=== PATIENT | female | born 1995 | race Caucasian/White ===

== ENCOUNTER 2016-06-04 16:47 | Emergency (ER) | payer OTHER ==
[2016-06-04 17:38] VITALS: BP 122/70
--- NOTE | 2016-06-04 18:17 | UC ---
Ear Complaint HPI - HPI Summary HPI Summary: sever ear pain for 4 days, URI symptoms. denies hearing loss, - History of Current Complaint Chief Complaint: UCEar Stated Complaint: EAR ACHE Time Seen by Provider: 06/04/16 18:11 Hx Obtained From: Patient Hx Last Menstrual Period: 05/31/16 presently ?: No Onset/Duration: Sudden Onset, Lasting Days Severity Initially: Moderate Severity Currently: Severe Pain Intensity: 8 Pain Scale Used: 0-10 Numeric Associated Signs/Symptoms: Positive: Discharge, URI Symptoms - Allergies/Home Medications Allergies/Adverse Reactions: Allergies Allergy/AdvReac Type Severity Reaction Status Date / Time coconut Allergy Severe Itching Uncoded 06/04/16 17:39 bee stings Allergy Intermediate Hives Uncoded 06/04/16 17:39 Home Medications: Home Medications Control Patch 06/04/16 [History] PMH/Surg Hx/FS Hx/Imm Hx Previously Healthy: Yes Endocrine History Of: Denies: Diabetes, Thyroid Disease, Hyperthyroidism, Hypothyroidism Cardiovascular History Of: Denies: Cardiac Disorders, Hypertension, Pacemaker/ICD Respiratory History Of: Reports: Asthma Denies: COPD GI/ History Of: Denies: Ulcer, Renal Disease Neurological History Of: Denies: TIA, Seizures Psychological History Of: Denies: Anxiety, Depression - Surgical History Surgical History: None Surgery Procedure, Year, and Place: [facility] 2014 miscarriage - Family History Known Family History: Positive: Diabetes, Other - mom- PE's; dad - stomach cancer - Social History Alcohol Use: Weekly Substance Use Type: None Smoking Status (MU): Former Smoker Length of Time of Smoking/Using Tobacco: one year Have You Smoked in the Last Year: No When Did the Patient Quit Smoking/Using Tobacco: 2011 Household Exposure Type: Cigarettes - Immunization History Most Recent Influenza Vaccination: 02/13/16 Most Recent Tetanus Shot: 01/18/16 Most Recent Pneumonia Vaccination: N/A Review of Systems Constitutional: Fever, Fatigue Skin: Negative Eyes: Negative ENT: Sore Throat, Ear Ache, Nasal Discharge Respiratory: Negative Cardiovascular: Negative Gastrointestinal: Negative Genitourinary: Negative Motor: Negative Neurovascular: Negative Musculoskeletal: Negative Neurological: Negative Psychological: Negative All Other Systems Reviewed And Are Negative: Yes Physical Exam Triage Information Reviewed: Yes Appearance: Well-Nourished, Ill-Appearing, Pain Distress Vital Signs: Initial Vital Signs Temp 98.6 F 06/04/16 17:30 Pulse 67 06/04/16 17:30 Resp 16 06/04/16 17:30 BP 122/70 06/04/16 17:30 Pulse Ox 100 06/04/16 17:30 Vital Signs Reviewed: Yes Eye Exam: Normal ENT: Positive: Pharyngeal erythema, Nasal drainage - right external canal is very swollen, otitis media noted. left ear normal Dental Exam: Normal Neck exam: Normal Neck: Positive: Supple, Nontender, No Lymphadenopathy Respiratory Exam: Normal Respiratory: Positive: Chest non-tender, Lungs clear, Normal breath sounds Cardiovascular Exam: Normal Cardiovascular: Positive: RRR, No Murmur, Pulses Normal Abdominal Exam: Normal Abdomen Description: Positive: Nontender, No Organomegaly, Soft Bowel Sounds: Positive: Present Musculoskeletal Exam: Normal Musculoskeletal: Positive: Strength Intact, ROM Intact, No Edema Neurological Exam: Normal Neurological: Positive: Alert, Muscle Tone Normal Psychological Exam: Normal Skin Exam: Normal Ear Complaint Course/Dx - Course Course Of Treatment: hx obtained, exam performed, treated for otitis media right ear - Differential Dx/Diagnosis Differential Diagnosis/HQI/PQRI: Cellulitis, Cerumen Impaction, Foreign Body, Otitis Externa, Otitis Media, Perforated TM Provider Diagnoses: Otitis media, right Discharge - Discharge Plan Condition: Stable Disposition: HOME Prescriptions: Amoxicillin/Clavulanate TAB* [Augmentin TAB 875*] 875 mg PO BID #20 tab Ibuprofen TAB* [Motrin TAB* 600 MG] 600 mg PO Q6H PRN #30 tab PRN Reason: Pain Patient Education Materials: Otitis Media (ED) Additional Instructions: take the medication as prescribed, ibuprofen for pain and fever, follow upw ith any hearing loss or worsening symtpoms.
== END 2016-06-04 18:20 | disposition home or self-care (01) ==
LOC: UCEAST 16:47
DX: H66.91 Otitis media, unspecified, right ear (principal); Z87.891 Personal history of nicotine dependence
CPT/HCPCS: 99212; G0463

== ENCOUNTER 2016-09-02 10:42 | Emergency (ER) | payer SELFPAY ==
[2016-09-02 10:51] VITALS: BP 117/67
--- NOTE | 2016-09-02 11:34 | UC ---
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 constant aching pain that radiates into her neck moving her arm amd turning her head to the left makes it worse looking down also increases the pain lying on her back lessens the pain took some ibuprofen 600 mg PO with some relief yesterday - History of Current Complaint Chief Complaint: UCUpperExtremity Stated Complaint: BACK AND SHOULDER INJURY Time Seen by Provider: 09/02/16 11:25 Hx Obtained From: Patient Hx Last Menstrual Period: 08/22/16 - Allergies/Home Medications Allergies/Adverse Reactions: Allergies Allergy/AdvReac Type Severity Reaction Status Date / Time coconut Allergy Severe Itching Uncoded 09/02/16 10:51 bee stings Allergy Intermediate Hives Uncoded 09/02/16 10:51 PMH/Surg Hx/FS Hx/Imm Hx Previously Healthy: Yes Endocrine History Of: Denies: Diabetes, Thyroid Disease, Hyperthyroidism, Hypothyroidism Cardiovascular History Of: Denies: Cardiac Disorders, Hypertension, Pacemaker/ICD Respiratory History Of: Reports: Asthma Denies: COPD GI/ History Of: Denies: Ulcer, Renal Disease Neurological History Of: Denies: TIA, Seizures Psychological History Of: Denies: Anxiety, Depression - Surgical History Surgical History: None Surgery Procedure, Year, and Place: Dn 2014 miscarriage - Family History Known Family History: Positive: Diabetes, Other - mom- PE's; dad - stomach cancer Negative: Cardiac Disease, Hypertension - Social History Occupation: Employed Full-time Lives: With Family Alcohol Use: Occasionally Substance Use Type: None Smoking Status (MU): Former Smoker Length of Time of Smoking/Using Tobacco: one year Have You Smoked in the Last Year: No When Did the Patient Quit Smoking/Using Tobacco: 2011 Household Exposure Type: Cigarettes - Immunization History Most Recent Influenza Vaccination: 02/13/16 Most Recent Tetanus Shot: 01/18/16 Most Recent Pneumonia Vaccination: N/A Review of Systems Constitutional: Negative Skin: Negative Eyes: Negative ENT: Negative Respiratory: Negative Cardiovascular: Negative Gastrointestinal: Negative Genitourinary: Negative Motor: Negative Neurovascular: Negative Musculoskeletal: Other: - left shoulder pain Neurological: Negative Psychological: Negative All Other Systems Reviewed And Are Negative: Yes Physical Exam Triage Information Reviewed: Yes Appearance: No Pain Distress, Well-Nourished Vital Signs: Initial Vital Signs Temp 98.1 F 09/02/16 10:48 Pulse 71 09/02/16 10:48 Resp 16 09/02/16 10:48 BP 117/67 09/02/16 10:48 Pulse Ox 99 09/02/16 10:48 Vital Signs Reviewed: Yes Eyes: Positive: Conjunctiva Clear ENT: Positive: Pharynx normal, TMs normal Neck: Positive: No Lymphadenopathy, Other: - tenderness throughout trapezius full ROM of neck Respiratory: Positive: Lungs clear, Normal breath sounds, No respiratory distress, No accessory muscle use Cardiovascular: Positive: RRR, No Murmur, Pulses Normal Abdomen Description: Positive: Nontender, Soft Bowel Sounds: Positive: Present Musculoskeletal: Positive: Other: - No bony deformities,- tenderness in rotator cuff and acromioclavicular joint. Full ROM and strength in shoulder upon adduction, abduction, internal and external rotation. Neurological: Positive: Alert Psychological Exam: Normal Skin Exam: Normal Back Pain Course/Dx - Differential Dx/Diagnosis Differential Diagnosis/HQI/PQRI: Strain, Sprain Provider Diagnoses: left shouder pain Discharge - Discharge Plan Condition: Stable Disposition: HOME Prescriptions: Cyclobenzaprine TAB* [Flexeril 10 MG TAB*] 10 mg PO BEDTIME #7 tab Patient Education Materials: Shoulder Pain (ED), Shoulder Sprain (ED) Referrals: Cheyenne Recinos MD [Primary Care Provider] - Additional Instructions: Start flexeril as directed. Do not drink alcohol or drive while taking flexeril. Please call physical therapy for further evaluation and treatment. Take ibuprofen for fever or pain. Increase fluids and rest. Please review your discharge instructions. If your symptoms do not improve please call your primary care provider or return to urgent care.
== END 2016-09-02 11:50 | disposition home or self-care (01) ==
LOC: UCEAST 10:42
DX: M25.512 Pain in left shoulder (principal); J45.909 Unspecified asthma, uncomplicated; Z87.891 Personal history of nicotine dependence
CPT/HCPCS: 99212; G0463

== ENCOUNTER 2017-03-14 21:57 | Emergency (ER) | payer MEDICAID, OTHER ==
[2017-03-14 22:02] VITALS: BP 117/75
--- NOTE | 2017-03-15 01:51 | ED ---
Back Pain - HPI Summary HPI Summary: Patient presents to the ED with CC of left rib pain after coughing. Cough x 3 weeks which has been improving. Since coughing hard a few days ago she has noticed a pain in her right lower left ribs which is worse with movement, coughing and better with rest. Denies fevers, sweats, or chills. She has not taken anything for the pain. She denies other symptoms or complaints at this time. Denies throat pain, ABDI or abdominal pain. Denies SOB or chest pain. - History of Current Complaint Chief Complaint: EDChestWallPain Stated Complaint: LT SIDE RIB PAIN Time Seen by Provider: 03/14/17 22:14 Hx Obtained From: Patient Hx Last Menstrual Period: 08/22/16 Onset/Duration: Sudden Onset Onset/Duration: Started Days Ago Timing: Constant Back Pain Location: Is Discrete @ - left rib pain Severity Initially: Moderate Severity Currently: Moderate Pain Intensity: 4 Pain Scale Used: 0-10 Numeric Character: Aching Aggravating Symptom(s): Movement Alleviating Symptom(s): Rest Associated Signs And Symptoms: Positive: Negative - Risk Factors AAA Risk Factors: Negative TAD Risk Factors: Negative Cauda Equina Risk Factors: Negative Epidural Abscess Risk Factors: Negative - Allergies/Home Medications Allergies/Adverse Reactions: Allergies Allergy/AdvReac Type Severity Reaction Status Date / Time coconut Allergy Severe Itching Uncoded 03/14/17 22:02 bee stings Allergy Intermediate Hives Uncoded 03/14/17 22:02 PMH/Surg Hx/FS Hx/Imm Hx Previously Healthy: Yes Endocrine/Hematology History: Denies: Hx Diabetes, Hx Thyroid Disease Cardiovascular History: Denies: Hx Hypercholesterolemia, Hx Hypertension, Hx Pacemaker/ICD, Hx Peripheral Vascular Disease Respiratory History: Reports: Hx Asthma, Other Respiratory Problems/Disorders - ASTHMA Denies: Hx Chronic Obstructive Pulmonary Disease (COPD) GI History: Denies: Hx Ulcer History: Denies: Hx Renal Disease Musculoskeletal History: Reports: Hx Scoliosis Denies: Hx Arthritis, Hx Osteoporosis Sensory History: Denies: Hx Cataracts, Hx Contacts or Glasses, Hx Glaucoma, Hx Hearing Aid Opthamlomology History: Denies: Hx Cataracts, Hx Contacts or Glasses, Hx Glaucoma Neurological History: Denies: Hx Headaches, Hx Seizures, Hx Transient Ischemic Attacks (TIA) Psychiatric History: Denies: Hx Anxiety, Hx Depression, Hx Panic Disorder - Cancer History Cancer Type, Location and Year: inhaler PRN. control patch - Surgical History Surgery Procedure, Year, and Place: [facility] 2014 miscarriage - Immunization History Date of Tetanus Vaccine: Unk Date of Influenza Vaccine: None Hx Pertussis Vaccination: No Immunizations Up to Date: Yes Infectious Disease History: No Infectious Disease History: Reports: Hx Tuberculosis - Postive Test in past Denies: Hx Clostridium Difficile, Hx Hepatitis, Hx Human Immunodeficiency Virus (HIV), Hx of Known/Suspected MRSA, Hx Shingles, Hx Known/Suspected VRE, Hx Known/Suspected VRSA, History Other Infectious Disease, Traveled Outside the [place] in Last 30 Days - Family History Known Family History: Positive: Diabetes, Other - mom- PE's; dad - stomach cancer Negative: Cardiac Disease, Hypertension - Social History Occupation: Unemployed Lives: With Family Alcohol Use: Occasionally Hx Substance Use: No Substance Use Type: Reports: None Hx Tobacco Use: No Smoking Status (MU): Current Some Day Smoker Length of Time of Smoking/Using Tobacco: one year Have You Smoked in the Last Year: No Review of Systems Constitutional: Negative Negative: Fever, Chills, Fatigue Eyes: Negative Cardiovascular: Negative Respiratory: Negative Genitourinary: Negative Positive: no symptoms reported, see HPI Positive: Arthralgia - left lower rib pain Neurological: Negative All Other Systems Reviewed And Are Negative: Yes Physical Exam Triage Information Reviewed: Yes Vital Signs On Initial Exam: Initial Vitals Temp Pulse Resp BP Pulse Ox 98.4 F 94 15 117/75 100 03/14/17 22:00 03/14/17 22:00 03/14/17 22:00 03/14/17 22:00 03/14/17 22:00 Vital Signs Reviewed: Yes Appearance: Positive: Well-Appearing, Well-Nourished Skin: Positive: Warm, Skin Color Reflects Adequate Perfusion Head/Face: Positive: Normal Head/Face Inspection Eyes: Positive: QUYNH, Conjunctiva Clear Neck: Positive: Supple, Nontender, No Lymphadenopathy Respiratory/Lung Sounds: Positive: Clear to Auscultation, Breath Sounds Present Cardiovascular: Positive: RRR, Pulses are Symmetrical in both Upper and Lower Extremities Musculoskeletal: Positive: Pain @ - left rib pain Neurological: Positive: Speech Normal Psychiatric: Positive: Normal, Affect/Mood Appropriate Diagnostics - Vital Signs Vital Signs Temp Pulse Resp BP Pulse Ox 03/14/17 22:00 98.4 F 94 15 117/75 100 - Laboratory Lab Statement: Any lab studies that have been ordered have been reviewed, and results considered in the medical decision making process. Back Pain Course/Dx - Course Course Of Treatment: Patient evaluated for left rib pain. Lungs CTA with equal expansion bilaterally. Xray read by Dr. Harkins in the ED and by Angelika Holley PA-C. Xray negative for acute findings. She denies medications and is OK for discharge. - Diagnoses Differential Diagnosis/HQI/PQRI: Positive: Compressive Cord Syndrome, Strain, Sprain Provider Diagnoses: Rib pain Discharge - Discharge Plan Condition: Stable Disposition: HOME Patient Education Materials: Rib Contusion (ED) Referrals: Cheyenne Recinos MD [Primary Care Provider] - Additional Instructions: Ibuprofen 600mg three times daily
--- NOTE | 2017-03-15 07:29 | RAD ---
INDICATION: Left lower rib pain COMPARISON: None TECHNIQUE: Multiple views of the ribs were obtained. FINDINGS: Bones: There is no evidence of acute rib fracture. LUNGS: The lungs are clear. There is no pneumothorax. Pleural spaces: There is no evidence of hemothorax. Other: None IMPRESSION: NEGATIVE EXAMINATION.
== END 2017-03-14 22:57 | disposition home or self-care (01) ==
LOC: ED 21:57
DX: R07.81 Pleurodynia (principal); Z72.0 Tobacco use; R05 Cough
CPT/HCPCS: 99281

== ENCOUNTER 2017-04-27 22:31 | Emergency (ER) | payer SELFPAY ==
[2017-04-28] MEDS ORDERED: Dexamethasone TAB* 4 MG PO ONE (01:12)
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
[2017-04-28 03:17] VITALS: BP 108/73
== END 2017-04-28 03:15 | disposition home or self-care (01) ==
LOC: ED 22:31
DX: M54.2 Cervicalgia (principal); J02.9 Acute pharyngitis, unspecified; Z87.891 Personal history of nicotine dependence; V89.2XXA Person injured in unspecified motor-vehicle accident, traffic, initial encounter; Y92.9 Unspecified place or not applicable; J45.909 Unspecified asthma, uncomplicated; M41.9 Scoliosis, unspecified
CPT/HCPCS: 87651; 99282; J8540

== ENCOUNTER 2017-08-05 15:54 | Emergency (ER) | payer SELFPAY ==
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
[2017-08-05] MEDS ORDERED: NS 0.9% 1000 ML* 1,000 ML IV ONE (18:34)
[2017-08-05 19:24] LABS: ABS Basophils 0 10^3/ul (0-0.2); ABS Eosinophils 0 10^3/ul (0-0.6); ABS Lymphocytes 1.8 10^3/ul (1.0-4.8); ABS Monocytes 0.5 10^3/ul (0-0.8); ABS Neutrophils 6.1 10^3/ul (1.5-7.7); ABS Nucleated RBC 0 10^3/ul; Eosinophil % 0.5 % (0-6); Hematocrit 36 % (35-47); Hemoglobin 12.3 g/dl (12.0-16.0); Lymphocyte % 20.7 % (25-47); Mean Corpuscular HGB Conc 34 g/dl (31-36); Mean Corpuscular Hemoglobin 30 pg (27-31); Mean Corpuscular Volume 89 fL (80-97); Mean Platelet Volume 8.6 um3 (7.4-10.4); Nucleated Red Blood Cells % 0.1; Platelet Count 210 10^3/ul (150-450); Red Blood Count 4.04 10^6/ul (4.0-5.4); Red Cell Distribution Width 13 % (10.5-15); White Blood Count 8.5 10^3/ul (3.5-10.8)
[2017-08-05 19:34] LABS: INR 1.09 (0.77-1.02)
[2017-08-05 20:00] LABS: Urine Appearance Clear; Urine Blood Negative (Negative); Urine Color Yellow; Urine Ketones Trace (Negative); Urine Protein 1+(30 mg/dL) (Negative); Urine Specific Gravity 1.012 (1.010-1.030); Urine Urobilinogen Negative (Negative)
[2017-08-05 20:05] LABS: EGFR Non-African American 119.3 (>60)
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
[2017-08-05 22:10] VITALS: BP 106/65
== END 2017-08-05 22:11 | disposition home or self-care (01) ==
LOC: ED 15:54
DX: S09.90XA Unspecified injury of head, initial encounter (principal); S00.83XA Contusion of other part of head, initial encounter; Y09 Assault by unspecified means; Y92.9 Unspecified place or not applicable; Z87.891 Personal history of nicotine dependence; S20.219A Contusion of unspecified front wall of thorax, initial encounter; S40.021A Contusion of right upper arm, initial encounter; S70.11XA Contusion of right thigh, initial encounter
CPT/HCPCS: 36415; 70450; 70486; 71046; 72125; 80053; 80307; 80320; 80329; 81003; 81015; 82550; 82553; 83605; 83690; 84443; 84484; 84702; 85025; 85610; 85730; 86140; 93005; 96360; 99283; G0480

== ENCOUNTER 2017-11-12 23:10 | Emergency (ER) | payer OTHER ==
--- OUTSIDE RECORDS SUMMARY | 2017-11-12 23:25 | XMS REPORT ---
:1995 External Reference #:[id number] Author Organization [employer] Address [address] [place] [address] Phone [phone] Care Team Providers Name Role Phone Parag Lui MD Primary Care Physician Unavailable Payers Type Date Identification Numbers Payment Provider Subscriber Commercial Effective: Policy Number: [id number] [employer] Bruna Pappas 2014 Medicaid Expires: 2016 PayID: [id number] [address] [address] [place] [address] Medigap Part B Effective: 2012 Policy Number: Medicaid Bruna Pappas [id number] Expires: 2014 PayID: [id number] [address] [place] [address] Commercial Policy Number: [id number] Jonathan Bruna E Avril PayID: [id number] [address] [place] [address] Problems Date Description Provider Status Onset: 07/30/2013 Asthma without status asthmaticus Cheyenne Recinos M.D. Active Onset: 03/21/2015 Hypertrophy of tonsils Dat Oseguera M.D. Active Onset: 03/21/2015 Chronic tonsillitis Dat Oseguera M.D. Active Onset: 07/05/2014 Insomnia Parag Lui M.D. Active Onset: 07/05/2014 Depressive disorder Parag Lui M.D. 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 Not Currently Working Cigarette Use Quit 3 Years Ago Cigars Never Smoked Cigars Pipe Never Smoked A Pipe Smokeless Tobacco Never Used Smokeless Tobacco ETOH Use Denies alcohol use Smoking Patient is a former smoker quit 2010 smoked X 1 yr Recreational Drug Use Denies Drug Use Exercise Type/Frequency Exercises rarely Allergies, Adverse Reactions, Alerts Date Description Reaction Status Severity Comments 07/14/2013 NKDA active 07/14/2013 Coconut active 07/14/2013 Bee Sting active Medications Medication Date Status Form Strength Qnty SIG Indications Ordering Provider Proair HFA 06/18 Active Aerosol 108(90Bas 1unit 2 puffs every 493.90 e) s 4-6 hours as Pachikara mcg/Act needed , Rudy Xulane Active Patches 150-35mcg Unknown /0000 Weekly /24HR Rifampin 07/05 Hx Capsules 300mg 60cap 2 by mouth s every day Nakul Quevedo, 10/14.DMookie Azithromycin 03/24 Hx Tablets 250mg 6tabs 2 tab today J03.80 and then 1tab Pachikara - daily MLizzy 10/14 Meclizine HCL 03/24 Hx Tablets 12.5mg 60tab 1-2 tab hs H82.9 s Hu - Rudy 10/14 Fluticasone 12/27 Hx Suspension 50mcg/Act 16uni 2 sprays each J30.1 Roberto Propionate ts nostril qd. MICHELL Churchill - 03/24 Amoxicillin 12/27 Hx Capsules 500mg 20cap one tablet J02.9 Roberto /2014 s two times a MICHELL Churchill - day for 10 Escitalopram 07/05 Hx Tablets 10mg 15tab 1 by mouth 311 [place] Oxalate s every day Hu - Rudy 12/27 Zolpidem 07/05 Hx Tablets 5mg 7tabs 1 tab by 780.52 Jennings Tartrate mouth at Pachikara - night as Rudy 12/27 needed Ketoconazole 10/27 Hx Cream 2% 60gm apply once 110.5 daily to [place], - affected area N.P. 07/05 Ventolin HFA 06/18 Hx 108(90Bas 1mont 2 puffs po 493.90 e) mcg/ac h qid prn Shanti Recinos M.D. 06/18 Clindamycin 06/18 Hx Gel 1% 1unit apply to 706.1 Miriam s affected area [place], - two times N.P. 07/05 daily for days as needed forbreakouts Proair HFA Hx Aerosol 108(90Bas 1unit 2 puffs po Unknown /0000 e) s q4h prn - mcg/Act 06/18 Sprintec 28 Hx Tablets 0.25-35mg 30tab 1 po qd Unknown /0000 -mcg s - 07/05 Immunizations CPT Code Status Date Vaccine Lot # [id number] Given 06/18/2013 Tdap - Tetanus/Diptheria/Acellular Pertussis Vital Signs Date Vital Result Comment 10/14/2017 Height 66 inches 5'6" Weight 137.00 lb Heart Rate 91 /min BP Systolic 110 mmHg BP Diastolic 66 mmHg O2 % BldC Oximetry 99 % BMI (Body Mass Index) 22.1 kg/m2 07/03/2016 Height 66 inches 5'6" Weight 145.38 lb Heart Rate 78 /min BP Systolic Sitting 110 mmHg BP Diastolic Sitting 65 mmHg Respiratory Rate 14 /min Body Temperature 98.5 F O2 % BldC Oximetry 98 % BMI (Body Mass Index) 23.5 kg/m2 03/24/2015 Height 66 inches 5'6" Weight 128.38 lb Heart Rate 100 /min BP Systolic Sitting 104 mmHg BP Diastolic Sitting 62 mmHg Body Temperature 98.6 F O2 % BldC Oximetry 98 % BMI (Body Mass Index) 20.7 kg/m2 03/21/2015 Height 66 inches 5'6" Weight 137.00 lb BMI (Body Mass Index) 22.1 kg/m2 12/27/2014 Height 66 inches 5'6" Weight 131.00 lb Heart Rate 66 /min BP Systolic 94 mmHg BP Diastolic 63 mmHg Body Temperature 98.0 F BMI (Body Mass Index) 21.1 kg/m2 07/05/2014 Height 66 inches 5'6" Weight 129.38 lb Heart Rate 90 /min BP Systolic Sitting 110 mmHg BP Diastolic Sitting 68 mmHg O2 % BldC Oximetry 97 % BMI (Body Mass Index) 20.9 kg/m2 10/27/2013 Height 66 inches 5'6" Weight 124.00 lb Heart Rate 64 /min BP Systolic Sitting 98 mmHg BP Diastolic Sitting 62 mmHg Body Temperature 97.8 F BMI (Body Mass Index) 20.0 kg/m2 07/14/2013 Height 66 inches 5'6" Weight 138.00 lb Heart Rate 88 /min BP Systolic Sitting 92 mmHg BP Diastolic Sitting 60 mmHg Body Temperature 97.2 F O2 % BldC Oximetry 98 % BMI (Body Mass Index) 22.3 kg/m2 06/18/2013 Height 66 inches 5'6" Weight 144.00 lb Heart Rate 78 /min BP Systolic Sitting 92 mmHg BP Diastolic Sitting 68 mmHg Body Temperature 97.7 F BMI (Body Mass Index) 23.2 kg/m2 Results Test Date Test Result H/L Range Note Laboratory test finding 08/05/2017 Lipase 25 U/L 11.0-82.0 Creatine Kinase(CK) 187 U/L 10-223 C Reactive Protein 1.13 mg/L < 5.00 1 HCG < 0.60 mIU/mL 2 TSH (Thyroid Stim Horm) 1.51 mcIU/mL 0.34-5.60 Salicylate < 2.50 mg/dL <30 CKMB 08/05/2017 CKMB ng/mL 2.9 ng/mL 0.6-6.3 Laboratory test finding 08/05/2017 Acetaminophen < 15 g/mL 3 Alcohol < 10 mg/dL <10 Troponin-I (TnI) 0.01 ng/mL <0.04 Comp Metabolic Panel 08/05/2017 Sodium 139 mmol/L 139-145 Potassium 3.6 mmol/L 3.5-5.0 Chloride 106 mmol/L 101-111 Co2 Carbon Dioxide 24 mmol/L 22-32 Anion Gap 9 mmol/L 2-11 Calcium 9.4 mg/dL 8.6-10.3 Albumin 4.5 g/dL 3.2-5.2 Total Bilirubin 0.70 mg/dL 0.2-1.0 Glucose 93 mg/dL 70-100 Blood Urea Nitrogen 12 mg/dL 6-24 Creatinine 0.62 mg/dL 0.51-0.95 BUN/Creatinine Ratio 19.4 8-20 Total Protein 7.2 g/dL 6.4-8.9 Globulin 2.7 g/dL 2-4 Albumin/Globulin Ratio 1.7 1-3 Alkaline Phosphatase 60 U/L 34-104 Alt 21 U/L 7-52 Ast 28 U/L 13-39 Egfr Non- 119.3 >60 Egfr 153.4 >60 4 Laboratory test finding 08/05/2017 Partial Thrombo Time 27.0 seconds 26.0 -36.3 PTT Inr/Protime 08/05/2017 Inr 1.09 High 0.77-1.02 CBC Auto Diff 08/05/2017 White Blood Count 8.5 10^3/uL 3.5-10.8 Red Blood Count 4.04 10^6/uL 4.0-5.4 Hemoglobin 12.3 g/dL 12.0-16.0 Hematocrit 36 % 35-47 Mean Corpuscular Volume 89 fL 80-97 Mean Corpuscular Hemoglobin 30 pg 27-31 Mean Corpuscular HGB Conc 34 g/dL 31-36 Red Cell Distribution Width 13 % 10.5-15 Platelet Count 210 10^3/uL 150-450 Mean Platelet Volume 8.6 um3 7.4-10.4 Abs Neutrophils 6.1 10^3/uL 1.5-7.7 Abs Lymphocytes 1.8 10^3/uL 1.0-4.8 Abs Monocytes 0.5 10^3/uL 0-0.8 Abs Eosinophils 0 10^3/uL 0-0.6 Abs Basophils 0 10^3/uL 0-0.2 Abs Nucleated RBC 0 10^3/uL Granulocyte % 72.0 % 38-83 Lymphocyte % 20.7 % Low 25-47 Monocyte % 6.4 % 0-7 Eosinophil % 0.5 % 0-6 Basophil % 0.4 % 0-2 Nucleated Red Blood Cells % 0.1 Urine Drug SCR ED & 08/05/2017 Amphetamine Ur Screen None Detected None Detect Pain Clinic Barbiturates Urine Screen None Detected None Detect Benzodiazepine Urine Screen Presumptive Posi <SEE NOTE> None Detect 5 Urine Cannabinoids Screen None Detected None Detect Urine Cocaine Screen Presumptive Posi <SEE NOTE> None Detect 6 Urine Opiates Screen None Detected None Detect Urine Phencyclidine Screen None Detected None Detect 7 Urinalysis Profile 08/05/2017 Urine Color Yellow Urine Appearance Clear Urine Specific Walker 1.012 1.010-1.030 Urine pH 6.0 5-9 Urine Urobilinogen Negative Negative Urine Ketones Trace Negative Urine Protein 1+(30 mg/dL) Negative Urine Leukocytes Negative Negative Urine Blood Negative Negative Urine Nitrite Negative Negative Urine Bilirubin Negative Negative Urine Glucose Negative Negative Urine White Blood Cell Absent Absent Urine Red Blood Cell Absent Absent Urine Bacteria Absent Absent Laboratory test 08/05/2017 Lactic Acid 0.6 mmol/L 0.5-2.0 8 finding Laboratory test 04/28/2017 Rapid Strep Negative Negative 9 finding Molecular Laboratory test 04/28/2017 Rapid Strep A SEE RESULT BELOW 10 finding Comp Metabolic Panel 07/03/2016 Sodium 140 mmol/L 133-145 Potassium 4.1 mmol/L 3.5-5.0 Chloride 105 mmol/L 101-111 Co2 Carbon Dioxide 31 mmol/L 22-32 Anion Gap 4 mmol/L 2-11 Glucose 75 mg/dL 70-100 Blood Urea Nitrogen 12 mg/dL 6-24 Creatinine 0.64 mg/dL 0.51-0.95 BUN/Creatinine Ratio 18.8 8-20 Calcium 9.6 mg/dL 8.6-10.3 Total Protein 7.4 g/dL 6.4-8.9 Albumin 4.4 g/dL 3.2-5.2 Globulin 3.0 g/dL 2-4 Albumin/Globulin Ratio 1.5 1-3 Total Bilirubin 0.40 mg/dL 0.2-1.0 Alkaline Phosphatase 53 U/L 34-104 Alt 11 U/L 7-52 Ast 15 U/L 13-39 Egfr Non- 116.0 >60 Egfr 149.2 >60 11 CBC Auto Diff 07/03/2016 White Blood Count 4.8 10^3/uL 3.5-10.8 Red Blood Count 4.35 10^6/uL 4.0-5.4 Hemoglobin 12.3 g/dL 12.0-16.0 Hematocrit 38 % 35-47 Mean Corpuscular Volume 87 fL 80-97 Mean Corpuscular Hemoglobin 28 pg 27-31 Mean Corpuscular HGB Conc 33 g/dL 31-36 Red Cell Distribution Width 13 % 10.5-15 Platelet Count 197 10^3/uL 150-450 Mean Platelet Volume 9 um3 7.4-10.4 Abs Neutrophils 2.0 10^3/uL 1.5-7.7 Abs Lymphocytes 2.2 10^3/uL 1.0-4.8 Abs Monocytes 0.3 10^3/uL 0-0.8 Abs Eosinophils 0.2 10^3/uL 0-0.6 Abs Basophils 0.1 10^3/uL 0-0.2 Abs Nucleated RBC 0.01 10^3/uL Granulocyte % 42.8 % 38-83 Lymphocyte % 46.5 % 25-47 Monocyte % 5.6 % 1-9 Eosinophil % 4.0 % 0-6 Basophil % 1.1 % 0-2 Nucleated Red Blood Cells % 0.1 Urinalysis Profile 10/31/2015 Urine Color Yellow Urine Appearance Cloudy Urine Specific Walker 1.012 1.010-1.030 Urine pH 7.0 5-9 Urine Urobilinogen Negative Negative Urine Ketones Negative Negative Urine Protein Negative Negative Urine Leukocytes Negative Negative Urine Blood Negative Negative Urine Nitrite Negative Negative Urine Bilirubin Negative Negative Urine Glucose Negative Negative Laboratory test finding 10/31/2015 HCG 00458.00 mIU/mL 12 Type & Screen 10/31/2015 Patient Blood Type O Positive Antibody Screen NEGATIVE Comp Metabolic Panel 10/31/2015 Sodium 136 mmol/L 133-145 Potassium 3.5 mmol/L 3.5-5.0 Chloride 104 mmol/L 101-111 Co2 Carbon Dioxide 24 mmol/L 22-32 Anion Gap 8 mmol/L 2-11 Glucose 74 mg/dL 70-100 Blood Urea Nitrogen 8 mg/dL 6-24 Creatinine 0.42 mg/dL Low 0.51-0.95 BUN/Creatinine Ratio 19.0 8-20 Calcium 9.2 mg/dL 8.6-10.3 Total Protein 7.6 g/dL 6.4-8.9 Albumin 3.9 g/dL 3.2-5.2 Globulin 3.7 g/dL 2-4 Albumin/Globulin Ratio 1.1 1-3 Total Bilirubin 0.40 mg/dL 0.2-1.0 Alkaline Phosphatase 51 U/L 34-104 Alt 8 U/L 7-52 Ast 15 U/L 13-39 Egfr Non- 190.5 >60 Egfr 244.9 >60 13 Laboratory test finding 10/31/2015 Partial Thrombo Time 28.9 seconds 26.0 -36.3 PTT Inr/Protime 10/31/2015 Inr 0.95 0.89-1.11 CBC Auto Diff 10/31/2015 White Blood Count 9.1 10^3/uL 3.5-10.8 Red Blood Count 3.59 10^6/uL Low 4.0-5.4 Hemoglobin 11.4 g/dL Low 12.0-16.0 Hematocrit 33 % Low 35-47 Mean Corpuscular Volume 92 fL 80-97 Mean Corpuscular Hemoglobin 32 pg High 27-31 Mean Corpuscular HGB Conc 34 g/dL 31-36 Red Cell Distribution Width 13 % 10.5-15 Platelet Count 205 10^3/uL 150-450 Mean Platelet Volume 8 um3 7.4-10.4 Abs Neutrophils 5.9 10^3/uL 1.5-7.7 Abs Lymphocytes 2.5 10^3/uL 1.0-4.8 Abs Monocytes 0.4 10^3/uL 0-0.8 Abs Eosinophils 0.2 10^3/uL 0-0.6 Abs Basophils 0 10^3/uL 0-0.2 Abs Nucleated RBC 0.01 10^3/uL Granulocyte % 64.9 % 38-83 Lymphocyte % 27.9 % 25-47 Monocyte % 4.4 % 1-9 Eosinophil % 2.3 % 0-6 Basophil % 0.5 % 0-2 Nucleated Red Blood Cells % 0.1 Urinalysis Profile 09/20/2015 Urine Color Yellow Urine Appearance Clear Urine Specific Walker 1.026 1.010-1.030 Urine pH 6.0 5-9 Urine Urobilinogen Negative Negative Urine Ketones Negative Negative Urine Protein Negative Negative Urine Leukocytes Negative Negative Urine Blood Negative Negative Urine Nitrite Negative Negative Urine Bilirubin Negative Negative Urine Glucose Negative Negative Laboratory test 12/27/2014 Rapid Group A Strep negative finding Laboratory test 12/27/2014 Culture Throat SEE RESULT BELOW 14 finding Laboratory test 11/22/2014 Urine Culture And SEE RESULT BELOW 15 finding Sensitivities CBC Auto Diff 03/22/2014 White Blood Count 4.7 10^3/uL Low 4.8-10.8 Red Blood Count 4.52 10^6/uL 4.0-5.4 Hemoglobin 13.1 g/dL 12.0-16.0 Hematocrit 39 % 35-47 Mean Corpuscular Volume 87 fL 80-97 Mean Corpuscular Hemoglobin 29 pg 27-31 Mean Corpuscular HGB Conc 33 g/dL 31-36 Red Cell Distribution Width 13 % 10.5-15 Platelet Count 204 10^3/uL 150-450 Mean Platelet Volume 9 um3 7.4-10.4 Abs Neutrophils 2.6 10^3/uL 1.5-7.7 Abs Lymphocytes 1.8 10^3/uL 1.0-4.8 Abs Monocytes 0.2 10^3/uL 0-0.8 Abs Eosinophils 0.1 10^3/uL 0-0.6 Abs Basophils 0 10^3/uL 0-0.2 Abs Nucleated RBC 0 10^3/uL Granulocyte % 54.4 % 38-83 Lymphocyte % 37.8 % 25-47 Monocyte % 4.4 % 1-9 Eosinophil % 2.4 % 0-6 Basophil % 1.0 % 0-2 Nucleated Red Blood Cells % 0.1 Laboratory test 03/22/2014 D Dimer Quantitative < 200 ng/mL Less Than 230 16 finding C Reactive Protein < 1.00 mg/L < 5.00 17 Laboratory test finding 07/14/2013 Throat Culture (SEE NOTE) 18 Laboratory test finding 07/14/2013 Rapid Strep A neg 1 Acute inflammation: >10.00 2 <5.0 Negative 5.0 - 25.0 Indeterminate (Repeat testing recommended after 72 hours) >25.0 Positive Perimenopausal women can display HCG levels of up to 20 mIU/mL 3 Therapeutic concentration: <50 ug/mL Toxic concentration: >120 ug/mL 4 Because ethnic data is not always readily available, this report includes an eGFR for both -Americans and non- Americans. The National Kidney Disease Education Program (NKDEP) does not endorse the use of the MDRD equation for patients that are not between the ages of 18 and 70, are , have extremes of body size, muscle mass, or nutritional status, or are non- or non-. According to the National Kidney Foundation, irrespective of diagnosis, the stage of the disease is based on the level of kidney function: Stage Description GFR(mL/min/1.73 m(2)) 1 Kidney damage with normal or decreased GFR 90 2 Kidney damage with mild decrease in GFR 60-89 3 Moderate decrease in GFR 30-59 4 Severe decrease in GFR 15-29 5 Kidney failure <15 (or dialysis) 5 Presumptive Positive Presumptive positive results are unconfirmed. 6 Presumptive Positive Presumptive positive results are unconfirmed. 7 The urine specimen was tested at the listed cutoffs: Drug class test level (ng/mL) Amphetamines 500 Barbiturates 200 Benzodiazepine metabolites 200 Cocaine metabolites 150 Cannabinoids 50 Opiates 300 Pcp 25 Specimen was received without chain of custody. Results should be used for medical purposes only. 8 [facility] Severe Sepsis and Septic Shock Management Bundle Measure requires all lactic acids initially measuring >2.0 mmol/L be repeated. 9 Showroom Salesperson: [id number] 10 SEE RESULT BELOW Name: BRUNA PAPPAS : [address]: Arik Benoit MD Acct: [id number] Unit: [id number] AGE: 22 Location: ED Re04/27/17 SEX: F Status: REG ER SPEC: [id number] DYLON: 04/28/[address]: Christy MOSQUERA REQ: [id number] RECD: 04/28/17 STATUS: MARYSOL KOEHLER DR: Amaris Recinos MD _ SOURCE: THROAT SPDESC: ORDERED: Strep A Request Procedure Result Reported Site Rapid Strep A Request Final 04/28/17- 0123 ML Specimen received for Rapid Strep A Molecular testing * ML - MAIN LAB ([facility]) . END OF REPORT * ML=Testing performed at Main Lab DEPARTMENT OF PATHOLOGY, [address] [place] [address] Luis Camejo M.D. Director [facility] # [id number] 11 Because ethnic data is not always readily available, this report includes an eGFR for both -Americans and non- Americans. The National Kidney Disease Education Program (NKDEP) does not endorse the use of the MDRD equation for patients that are not between the ages of 18 and 70, are , have extremes of body size, muscle mass, or nutritional status, or are non- or non-. According to the National Kidney Foundation, irrespective of diagnosis, the stage of the disease is based on the level of kidney function: Stage Description GFR(mL/min/1.73 m(2)) 1 Kidney damage with normal or decreased GFR 90 2 Kidney damage with mild decrease in GFR 60-89 3 Moderate decrease in GFR 30-59 4 Severe decrease in GFR 15-29 5 Kidney failure <15 (or dialysis) 12 <5.0 Negative 5.0 - 25.0 Indeterminate (Repeat testing recommended after 72 hours) >25.0 Positive Perimenopausal women can display HCG levels of up to 20 mIU/mL 13 Because ethnic data is not always readily available, this report includes an eGFR for both -Americans and non- Americans. The National Kidney Disease Education Program (NKDEP) does not endorse the use of the MDRD equation for patients that are not between the ages of 18 and 70, are , have extremes of body size, muscle mass, or nutritional status, or are non- or non-. According to the National Kidney Foundation, irrespective of diagnosis, the stage of the disease is based on the level of kidney function: Stage Description GFR(mL/min/1.73 m(2)) 1 Kidney damage with normal or decreased GFR 90 2 Kidney damage with mild decrease in GFR 60-89 3 Moderate decrease in GFR 30-59 4 Severe decrease in GFR 15-29 5 Kidney failure <15 (or dialysis) 14 SEE RESULT BELOW Name: BRUNA PAPPAS : [address]: Roberto Churchill NP Acct: [id number] Unit: [id number] AGE: 19 Location: [facility] Re12/27/14 SEX: F Status: REG REF SPEC: [id number] DYLON: 12/27/14-[address]: Roberto Churchill NP REQ: [id number] RECD: 12/27/14 STATUS: COMP _ SOURCE: THROAT SPDESC: ORDERED: Throat Culture Procedure Result Verified Site Throat Culture Final 12/29/14905 ML Organism 1 NORMAL TEDDY Quantity 3+ * ML - MAIN LAB ([facility]) . END OF REPORT * ML=Testing performed at Main Lab DEPARTMENT OF PATHOLOGY, [address] [place] [address] Luis Camejo M.D. Director [facility] # [id number] 15 SEE RESULT BELOW Name: BRUNA PAPPAS : [address]: Christiano Rice MD Acct: [id number] Unit: [id number] AGE: 19 Location: [facility] Re11/22/14 SEX: F Status: DEP ER SPEC: [id number] DYLON: 11/22/14-[address]: Christiano Rice MD REQ: [id number] RECD: 11/22/14 STATUS: MARYSOL KOEHLER DR: Cheyenne Recinos MD _ SOURCE: URINE SPDESC: ORDERED: Urine Culture Procedure Result Verified Site Urine Culture Final 11/24/14- 0805 ML Organism 1 ESCHERICHIA COLI [place] Count >100,000 (Many) CFU/ML 1. ESCHERICHIA COLI M.I.C. RX --------- ------ Ampicillin >=32 R Cefazolin <=4 S Cefepime <=1 S Ceftriaxone <=1 S Ciprofloxacin <=0.25 S Gentamicin <=1 S Levofloxacin <=0.12 S Meropenem <=0.25 S Nitrofurantoin <=16 S Tetracycline >=16 R Pipercillin/Tazobactam 64 I Trimethoprim/Sulfamethoxazole >=320 R Amoxicillin/Clavulanic Acid 16 I Aztreonam <=1 S Contact the Microbiology Department for any additional antibiotic reporting. * ML - MAIN LAB ([facility]) . END OF REPORT * ML=Testing performed at Main Lab DEPARTMENT OF PATHOLOGY, [facility]hub [place], [place] [address] Luis Camejo M.D. Director [facility] # [id number] 16 Please note: The following may produce a false positive D Dimer test: - Rheumatoid factor greater than 60 IU/ml - Plasma hemoglobin greater than 0.05 gm/dl - Bilirubin greater than 50 mg/dl - Lipids greater than 1000 mg/dl - FDP greater than 20 ug/ml 17 Acute inflammation: >10.00 18 RUN DATE: 07/17/13 [facility] LAB LIVE PAGE 1 RUN TIME: 999 [facility] [employer] [place], [place] [address] Specimen Inquiry Name: BRUNA REGAN : [address]: Cynthia Aguirre MD Acct: [id number] Unit: [id number] AGE: 18 Location: [facility] Re07/14/13 SEX: F Status: REG REF SPEC: [id number] DYLON: 07/14/13-15[address] [facility] [address]: Cynthia Aguirre MD REQ: [id number] RECD: 07/14/13 STATUS: COMP _ SOURCE: THROAT SPDESC: ORDERED: Throat Culture QUERIES: Medent Number [id number] Procedure Result Verified Site Throat Culture Final 07/17/13- 1000 ML Organism 1 NORMAL TEDDY Quantity 3+ END OF REPORT * ML=Testing performed at Main Lab DEPARTMENT OF PATHOLOGY, [address] [place] [address] Luis Camejo M.D. Director [facility] Permit #[id number] Procedures Description No Information Encounters Type Date Location Provider CPT E/M Dx [facility] [address] R76.11 9:30a Infectious Diseases Rudy Quevedo Office Visit 03/24/2015 [facility] Internal Medicine Parag Lui, 196[address] J03.80 1:00p - [place] Grant H82.9 Office Visit 03/21/2015 2:30p [facility] Oseguera, 61029 J35.01 C.M[facility]AMookie AT [place] Rudy J35.1 Office Visit 12/27/2014 4:00p [facility] [place] [address] J30.1 [place] J02.9 Office Visit 07/05/2014 4:40p [facility] Internal Parag Lui, 28775 493.90 Medicine - Tbjason Perales M.D. 311 780.52 Office Visit 10/27/2013 2:20p [facility] Internal Medicine Miriam Stone, N.PMookie 44543 110.5 - [place] Office Visit 07/14/2013 2:20p [facility] Internal Medicine Cynthia Aguirre M.D. 60119 465.0 - [place] Office Visit 06/18/2013 1:10p [facility] Internal Medicine Cheyenne Recinos M.D. 19660 493.90 - [place] 706.1 Plan of Care 10/14/2017 - Parag Lui M.D.Z00.00 Encntr for general adult medical exam w/o abnormal findingsComments:You should have yearly Flu shot and T dap every 10 years. Exercise 30mts/day 5 times a week,Use sun screen, to prevent skin cancer discussed.Self breast exam once a month to feel for lumps or bumpsCalled paientPatient already left before I noticed PHQ 9 reported 25. But as discussed with patient she declines to be depressed neither has suicidal thoughts. She state the form she filled was mistakeShe wants to come back and fill the form again.
[2017-11-13] MEDS ORDERED: Ketorolac INJ* 30 MG/ML 1 ML VIAL IV PUSH ONE (00:11)
[2017-11-13] MEDS ORDERED: diPHENhydraMINE IV* 50 MG/ML 1 ml VIAL (BENADRYL) IV ONE (00:12)
[2017-11-13] MEDS ORDERED: NS 0.9% 1000 ML* 1,000 ML IV ONE (00:12)
[2017-11-13] MEDS ORDERED: Metoclopramide IV* 5 MG/ML 2 ML VIAL IV SLOW PU ONE (00:12)
--- NOTE | 2017-11-13 01:36 | ED ---
Headache - HPI Summary HPI Summary: This is scribe Victoriano Skinner documenting for attending Golden Benoit M.D. Patient is a 22 y/o F w/ c/o ABDI onsetting two days ago. She states she had a concussion in July and she is still having problems with HAs, memory problems, sleeping problems and sometimes right eye blurry vision. She reports that ABDI is "not too bad" and slightly better than previously in the room. N/V denied. She also notes photophobia. On triage, pain is rated 4/10 and nothing is noted to aggravate/alleviate Sx. Patient reports taking excedrin and tylenol with no relief. Home medications and allergies reviewed. I, Dr. Benoit, personally performed the services described in this documentation as scribed in my presence and it is both accurate and complete. - History Of Current Complaint Chief Complaint: EDHeadache Stated Complaint: HEADACHE Time Seen by Provider: 11/12/17 23:51 Hx Obtained From: Patient Hx Last Menstrual Period: 08/22/16 Onset/Duration: Started days ago - two days ago, Still Present, Other - patient notes present ABDI in room is slightly better than previously Currently Pain Is: Moderate - 4/10 Timing: Constant, Days - onset two days Aggravating Factor: Nothing Allevating Factors: Nothing Associated Signs And Symptoms: Visual Changes - blurry in right eye, Other ( Noted In Comments) - NEGATIVE: nausea, vomiting POSITIVE: memory problems, sleeping problems, photophobia - Allergies/Home Medications Allergies/Adverse Reactions: Allergies Allergy/AdvReac Type Severity Reaction Status Date / Time coconut Allergy Severe Itching Uncoded 11/12/17 23:15 bee stings Allergy Intermediate Hives Uncoded 11/12/17 23:15 PMH/Surg Hx/FS Hx/Imm Hx Endocrine/Hematology History: Denies: Hx Diabetes, Hx Thyroid Disease Cardiovascular History: Denies: Hx Hypercholesterolemia, Hx Hypertension, Hx Pacemaker/ICD, Hx Peripheral Vascular Disease Respiratory History: Reports: Hx Asthma, Other Respiratory Problems/Disorders - ASTHMA Denies: Hx Chronic Obstructive Pulmonary Disease (COPD) GI History: Denies: Hx Ulcer History: Denies: Hx Renal Disease Musculoskeletal History: Reports: Hx Scoliosis Denies: Hx Arthritis, Hx Osteoporosis Sensory History: Denies: Hx Cataracts, Hx Contacts or Glasses, Hx Glaucoma, Hx Hearing Aid Opthamlomology History: Denies: Hx Cataracts, Hx Contacts or Glasses, Hx Glaucoma Neurological History: Denies: Hx Headaches, Hx Seizures, Hx Transient Ischemic Attacks (TIA) Psychiatric History: Denies: Hx Anxiety, Hx Depression, Hx Panic Disorder - Cancer History Cancer Type, Location and Year: inhaler PRN. control patch - Surgical History Surgery Procedure, Year, and Place: Dn 2014 miscarriage - Immunization History Date of Tetanus Vaccine: utd Date of Influenza Vaccine: none Infectious Disease History: No Infectious Disease History: Reports: Hx Tuberculosis - Postive Test in past Denies: Hx Clostridium Difficile, Hx Hepatitis, Hx Human Immunodeficiency Virus (HIV), Hx of Known/Suspected MRSA, Hx Shingles, Hx Known/Suspected VRE, Hx Known/Suspected VRSA, History Other Infectious Disease, Traveled Outside the [place] in Last 30 Days - Family History Known Family History: Positive: Diabetes, Other - mom- PE's; dad - stomach cancer Negative: Cardiac Disease, Hypertension - Social History Alcohol Use: Occasionally Hx Substance Use: No Substance Use Type: Reports: Cocaine Substance Use Comment - Amount & Last Used: xanax today Hx Tobacco Use: No Smoking Status (MU): Former Smoker Length of Time of Smoking/Using Tobacco: one year Have You Smoked in the Last Year: No Review of Systems Negative: Vomiting, Nausea Neurological: Other - memory problems, sleeping problems, photophobia, occasional blurry vision in right eye Positive: Headache All Other Systems Reviewed And Are Negative: Yes Physical Exam - Summary Physical Exam Summary: VITAL SIGNS: Reviewed. GENERAL: Patient is a well-developed and nourished female who is lying comfortable in the stretcher. Patient is not in any acute respiratory distress. HEAD AND FACE: No signs of trauma. No ecchymosis, hematomas or skull depressions. No sinus tenderness. EYES: PERRLA, EOMI x 2, No injected conjunctiva, no nystagmus. EARS: Hearing grossly intact. Ear canals and tympanic membranes are within normal limits. MOUTH: Oropharynx within normal limits. NECK: Supple, trachea is midline, no adenopathy, no JVD, no carotid bruit, no c- spine tenderness, neck with full ROM. CHEST: Symmetric, no tenderness at palpation LUNGS: Clear to auscultation bilaterally. No wheezing or crackles. CVS: Regular rate and rhythm, S1 and S2 present, no murmurs or gallops appreciated. ABDOMEN: Soft, non-tender. No signs of distention. No rebound no guarding, and no masses palpated. Bowel sounds are normal. EXTREMITIES: FROM in all major joints, no edema, no cyanosis or clubbing. NEURO: Alert and oriented x 3. No acute neurological deficits. Speech is normal and follows commands. SKIN: Dry and warm Triage Information Reviewed: Yes Vital Signs On Initial Exam: Initial Vitals Temp Pulse Resp BP Pulse Ox 98.8 F 82 15 129/76 100 11/12/17 23:12 11/12/17 23:12 11/12/17 23:12 11/12/17 23:12 11/12/17 23:12 Vital Signs Reviewed: Yes Diagnostics - Vital Signs Vital Signs Temp Pulse Resp BP Pulse Ox 11/13/17 00:21 123/75 11/12/17 23:12 98.8 F 82 15 129/76 100 - Laboratory Lab Statement: Any lab studies that have been ordered have been reviewed, and results considered in the medical decision making process. Re-Evaluation - Re-Evaluation First Eval Re-Evaluation Time: 01:25 Change: Improved Comment: Patient reports feeling better. She will be discharged to home and follow up with PCP in 1-2 days. She is agreeable with plan. Headache Course/Dx - Course Assessment/Plan: Patient is a 22 y/o F w/ c/o ABDI onsetting two days ago. She states she had a concussion in July and she is still having problems with HAs, memory problems, sleeping problems and sometimes right eye blurry vision. She reports that ABDI is "not too bad" and slightly better than previously in the room. N/V denied. She also notes photophobia. On triage, pain is rated 4/10 and nothing is noted to aggravate/alleviate Sx. Patient reports taking excedrin and tylenol with no relief. Physical exam was normal. During ED course, patient was given fluids, metoclopramide Hcl 10 mg IV SLOW PUSH ONCE, Ketorolac Tromethamine 30 mg IV PUSH ED ONCE, and diphenhydramine Hcl 25 mg IV ED ONCE. At 0125, patient reports feeling better. She will be discharged to home and follow up with PCP in 1-2 days. Patient is agreeable with plan. Patient was diagnosed with acute headache. - Diagnoses Provider Diagnoses: Acute headache Discharge - Sign-Out/Discharge Documenting (check all that apply): Patient Departure - discharge - Discharge Plan Patient Education Materials: Acute Headache (ED) Referrals: Cheyenne Recinos MD [Primary Care Provider] - 2 Days Additional Instructions: Follow up with primary care physician in 1-2 days. Return to ED for any new or worsening symptoms.
[2017-11-13 02:13] VITALS: BP 116/61
== END 2017-11-13 02:12 | disposition home or self-care (01) ==
LOC: ED 23:10
DX: R51 Headache (principal); Z91.030 Bee allergy status; Z91.018 Allergy to other foods; Z83.3 Family history of diabetes mellitus; Z80.0 Family history of malignant neoplasm of digestive organs; Z87.891 Personal history of nicotine dependence
CPT/HCPCS: 96374; 96375; 99283; J1200; J1885; J2765